=== PATIENT | female | born 1945 | race Caucasian/White ===

== ENCOUNTER 2019-04-07 11:40 | Emergency (ER) | payer MEDICARE, OTHER ==
[~2019-04-07] VITALS: Ht 162.6 cm; Wt 72.1 kg
--- OUTSIDE RECORDS SUMMARY | ~2019-04-07 | XMS | Clinical Summary ---
Demographics + + + | Address | [address] | | | [place] [address] | + + + | Home Phone | | + + + | Preferred Language | Unknown | + + + | Marital Status | | + + + | Judaism Affiliation | Unknown | + + + | Race | Unknown | + + + | Ethnic Group | Unknown | + + + Author + + + | Author | [facility] | | | and [place] | + + + | Organization | [facility] | | | and [place] | + + + | Address | Unknown | + + + | Phone | Unavailable | + + + Support + + +---------+ + | Name | Relationship | Address | Phone | + + +---------+ + | Renetta Hamm | ECON | Unknown | | + + +---------+ + Care Team Providers + +------+ + | Care Certified Scrub Tech Name | Role | Phone | + +------+ + | Mariaelena Brasher MD | PP | Unavailable | + +------+ + Allergies + + + + + + | Active Allergy | Reactions | Severity | Noted | Comments | | | | | Date | | + + + + + + | Pneumococcal | Swelling | Medium | 05/04/20 | Localized redness | | Vaccines | | | 16 | & swelling | + + + + + + Medications + + + +---------+------+------+-------+ | Medication | Sig | Dispensed | Refills | Star | End | Statu | | | | | | t | Date | s | | | | | | Date | | | + + + +---------+------+------+-------+ | | take 2 tablets daily | | 0 | 07/08 | | Activ | | Saxagliptin-Metformi | with dinner | | | 02/24 | | e | | n (KOMBIGLYZE XR) | | | | 12 | | | | 2.5-1000 MG TB24 | | | | | | | + + + +---------+------+------+-------+ | levothyroxine | Take 50 mcg by mouth | | 0 | 07/08 | | Activ | | (SYNTHROID, | Daily. | | | 20 | | e | | LEVOTHROID) 50 mcg | | | | 12 | | | | tablet | | | | | | | + + + +---------+------+------+-------+ | lisinopril | take 1/2 tablet | | 0 | 07/08 | | Activ | | (PRINIVIL, ZESTRIL) | daily | | | 02/24 | | e | | 5 mg tablet | | | | 12 | | | + + + +---------+------+------+-------+ | simvastatin | Take 40 mg by mouth | | 0 | | | Activ | | (ZOCOR) 40 mg tablet | nightly. | | | | | e | + + + +---------+------+------+-------+ | cholecalciferol | Take 1,000 Units by | | 0 | | | Activ | | (VITAMIN D-3) 1,000 | mouth Daily. | | | | | e | | units capsule | | | | | | | + + + +---------+------+------+-------+ | aspirin 325 MG EC | Take 1 tablet by | 28 | 0 | / | | Activ | | tablet | mouth 2 times daily. | tablet | | 11/26 | | e | | | | | | 16 | | | + + + +---------+------+------+-------+ | acetaminophen | Take 650 mg by mouth | | 0 | | | Activ | | (TYLENOL) 325 mg | every 4 hours as | | | | | e | | tablet | needed for Pain. | | | | | | + + + +---------+------+------+-------+ | bisacodyl | Take 10 mg by mouth | | 0 | | | Activ | | (DULCOLAX) 5 mg EC | Twice daily as | | | | | e | | tablet | needed for | | | | | | | | Constipation. | | | | | | + + + +---------+------+------+-------+ Active Problems + + + | Problem | Noted Date | + + + | Osteoarthritis of left hip | 05/04/2016 | + + + | H/O Femur fracture (??? side) | 05/04/2016 | + + + | ANEMIA-IRON DEFICIENCY | 04/04/2012 | + + + | FAMILY HX CA-GASTROINTESTINAL | 04/04/2012 | + + + | Hypothyroidism | | + + + | Hypertension | | + + + | Hyperlipidemia | | + + + | Dysmetabolic syndrome X | | + + + | Diabetes mellitus - ORAL CONTROL | | + + + | Osteopenia | | + + + Social History + +-------+ +--------+------+ | Tobacco Use | Types | Packs/Day | Years | Date | | | | | Used | | + +-------+ +--------+------+ | Never Smoker | | | | | + +-------+ +--------+------+ + +---+---+---+ | Smokeless Tobacco: | | | | | Never Used | | | | + +---+---+---+ + + +---------+ + | Alcohol Use | Drinks/We | oz/Week | Comments | | | ek | | | + + +---------+ + | No | | | | + + +---------+ + + + + | Sex Assigned at | Date Recorded | | | | + + + | Not on file | | + + + + + + + | Job Start Date | Occupation | Industry | + + + + | Not on file | Not on file | Not on file | + + + + + + + + | Travel History | Travel Start | Travel End | + + + + + + | No recent travel history available. | + + Last Filed Vital Signs + + + + | Vital Sign | Reading | Time Taken | + + + + | Blood Pressure | 149/81 | 05/09/20162345 PDT | + + + + | Pulse | 80 | 05/09/20162345 PDT | + + + + | Temperature | 36.3 C (97.3 F) | 05/09/20162099 PDT | + + + + | Respiratory Rate | 15 | 05/09/20162345 PDT | + + + + | Oxygen Saturation | 100% | 05/09/20162345 PDT | + + + + | Inhaled Oxygen | - | - | | Concentration | | | + + + + | Weight | 79.4 kg (175 lb) | 05/09/20162099 PDT | + + + + | Height | 162.6 cm (5' 4") | 05/09/20162099 PDT | + + + + | Body Mass Index | 30.04 | 05/09/20162099 PDT | + + + + Plan of Treatment + + + + + | Health Maintenance | Due Date | Last Done | Comments | + + + + + | Vaccine: | | | | | Dtap/Tdap/Td (1 - | 6 | | | | Tdap) | | | | + + + + + | Vaccine: Zoster (1 | | | | | of 2) | 7 | | | + + + + + | Vaccine: Influenza | | | | | (Season Ended) | 9 | | | + + + + + Implants + +--------+--------+ +--------+--------+--------+ | Implanted | Type | Area | Manufacture | Device | Shelf | Model | | | | | r | | Expira | / | | | | | | Identi | tion | Serial | | | | | | fier | Date | / Lot | + +--------+--------+ +--------+--------+--------+ | Shell Acet Pps [id number] Ltd - | Generi | Left: | BIOMET - | | 03/25/ | [id number] | | [id number]: Qty: 1 on | c | Hip | BIOM | | 2026 | 663 / | | 05/05/2016 by Maykel Graham | | | | | | /[id number] | | C, | | | | | | 69 | + +--------+--------+ +--------+--------+--------+ | Imp Hip Fem Stem Aven Std 7 - | Generi | Left: | KARENA - | | 03/06/ | [id number] | | [id number]: Qty: 1 | c | Hip | ZIMM | | 2019 | 0007 / | | on 05/05/2016 by Maykel Graham | | | | | | | | C, | | | | | | /[id number] | | | | | | | | 95 | + +--------+--------+ +--------+--------+--------+ | Liner Acetabular G7 - | Generi | Left: | BIOMET - | | 02/08/ | [id number] | | [id number]: Qty: 1 on | c | Hip | BIOM | | 2020 | 857 / | | 05/05/2016 by Maykel Graham | | | | | | /[id number] | | C, | | | | | | 24 | + +--------+--------+ +--------+--------+--------+ | Head 36mm - | Generi | Left: | KARENA - | | 08/06/ | 00-801 | | [id number]: Qty: 1 on | c | Hip | ZIMM | | 2024 | 8-036- | | 05/05/2016 by Maykel Graham | | | | | | 03 / | | C, MD | | | | | | /[id number] | | | | | | | | 045 | + +--------+--------+ +--------+--------+--------+ | Screw Acet G7 6.5x20mm - | Screw | Left: | BIOMET - | | 02/21/ | [id number] | | [id number]: Qty: 1 on | | Hip | BIOM | | 2025 | 997 / | | 05/05/2016 by Maykel Graham | | | | | | /[id number] | | C, MD | | | | | | 63 | + +--------+--------+ +--------+--------+--------+ | Screw Acet G7 6.5x35mm - | Screw | Left: | BIOMET - | | 03/18/ | [id number] | | [id number]: Qty: 1 on | | Hip | BIOM | | 2025 | 000 / | | 05/05/2016 by Maykel Graham | | | | | | /[id number] | | C, MD | | | | | | 36 | + +--------+--------+ +--------+--------+--------+ Results Not on filefrom Last 3 Months Insurance + +--------+ +--------+ +---------+--------+ | Payer | Benefi | Subscriber | Effect | Phone | Address | Type | | | t Plan | ID | jose j | | | | | | / | | Dates | | | | | | Group | | | | | | + +--------+ +--------+ +---------+--------+ | | [employer] | [id number] | 08/28/ | [phone] | | Indemn | | | A | | 2009-P | 7 | | ity | | | | | resent | | | | + +--------+ +--------+ +---------+--------+ | MEDICARE | MEDICA | [id number] | 03/07/20 | [phone] | | Medica | | | RE | | 12-Pre | 5 | | re | | | PART A | | sent | | | | | | AND B | | | | | | + +--------+ +--------+ +---------+--------+ + +--------+ +--------+ + + | Guarantor Name | Accoun | Relation to | Date | Phone | Billing Address | | | t Type | Patient | of | | | | | | | | | | + +--------+ +--------+ + + | Concetta Person | Person | Self | [birth year] | [address] [place], | | [place] | al/Alexys | | 1945 | [phone] | [place] [address] | | | [place] | | | 2 (Home) | | + +--------+ +--------+ + + Advance Directives Patient has advance care planning documents, and code status on file. For more information, please contact:[facility] [place] [address] + + + + + | Code Status | Date | Date | Comments | | | Activated | Inactivated | | + + + + + | Full Code | 05/05/2016 | 05/07/2016 | | | | 11:13 | 17:31 | | + + + + +
--- OUTSIDE RECORDS SUMMARY | ~2019-04-07 | XMS | Clinical Summary ---
Demographics + + + | Address | [address] | | | [place] [address] | + + + | Home Phone | | + + + | Preferred Language | Unknown | + + + | Marital Status | | + + + | Latter-Day Affiliation | Unknown | + + + | Race | Unknown | + + + | Ethnic Group | Unknown | + + + Author + + + | Author | [facility] | | | and Roman | + + + | Organization | [facility] | | | and [...] Team Providers + +------+ + | Care Storage Management Consultant Name | Role | Phone | + [...] | BIOMET - | | 03/25/ | [id number] | | [id number]: Qty: 1 on | c | Hip | BIOM | | 2026 | 663 / | | 05/05/2016 by Maykel Graham | | | | | | /[id number] | | C, | | | | | | 71 | + +--------+--------+ +--------+--------+--------+ | Imp Hip Fem Stem Aven Std 7 - | Generi | Left: | KARENA - | | 03/06/ | 218509 | | [id number]: Qty: 1 | c | Hip | ZIMM | | 2019 | 0007 / | | on 05/05/2016 by Maykel Graham | | | | | | | | C, | | | | | | /72349 | | | | | | | | 95 | + +--------+--------+ +--------+--------+--------+ | Liner Acetabular G7 - | Generi | Left: | BIOMET - | | 02/08/ | [id number] | | [id number]: Qty: 1 on | c | Hip | BIOM | | 2020 | 857 / | | 05/05/2016 by Maykel Graham | | | | | | /[id number] | | C, | | | | | | 24 | + +--------+--------+ +--------+--------+--------+ | Head 36mm - | Generi | Left: | KARENA - | | 08/06/ | 00-801 | | [id number]: Qty: 1 on | c | Hip | ZIMM | | 2024 | 8-036- | | 05/05/2016 by Maykel Graham | | | | | | 03 / | | C, MD | | | | | | /[id number] | | | | | | | | 045 | + +--------+--------+ +--------+--------+--------+ | Screw Acet G7 6.5x20mm - | Screw | Left: | BIOMET - | | 02/21/ | [id number] | | [id number]: Qty: 1 on | | Hip | BIOM | | 2025 | 997 / | | 05/05/2016 by Maykel Graham | | | | | | /90675 | | C, MD | | | | | | 63 | + +--------+--------+ +--------+--------+--------+ | Screw Acet G7 6.5x35mm - | Screw | Left: | BIOMET - | | 03/18/ | [id number] | | [id number]: Qty: 1 on | | Hip | BIOM | | 2025 | 000 / | | 05/05/2016 by Maykel Graham | | | | | | /[id number] | | C, MD | | | [...] +--------+ +--------+ +---------+--------+ | | [employer]AM[employer] | [id number] | 08/28/ | [phone] | | Indemn | | | A | | 2009-P | 7 | | ity | | | | | resent | | | | + +--------+ +--------+ +---------+--------+ | MEDICARE | MEDICA | [id number] | 03/07/20 | [phone] | | Medica [...] Vidya | al/Alexys | | 1945 | [phone] | [place] [address] | | | [place] | | | 2 (Home) | | + +--------+ +--------+ + + Advance Directives Patient has advance care planning documents, and code status on file. For more information, please contact:[facility] [place] [address] + + + + + | Code Status | Date | Date | Comments | | | Activated | Inactivated | | + + + + + | Full Code | 05/05/2016 | 05/07/2016 | | | | 11:13 | 17:31 | | + + + + +
[2019-04-07] MEDS ORDERED: PAIN RELIEF325 MG PO (11:52)
[2019-04-07] MEDS ORDERED: LISINOPRIL5 MG PO (11:52)
== END 2019-04-07 16:17 | disposition home or self-care (01) ==
LOC: ED 11:40
PROC: 2W3CX1Z Immobilization of Right Lower Arm using Splint (ICD-10-PCS; principal; 2019-04-07)
DX: S59.291A Other physeal fracture of lower end of radius, right arm, initial encounter for closed fracture (principal); E11.9 Type 2 diabetes mellitus without complications; Z79.899 Other long term (current) drug therapy; W01.198A Fall on same level from slipping, tripping and stumbling with subsequent striking against other object, initial encounter
CPT/HCPCS: 29125; 73110; 99283-25